=== PATIENT | female | born 1955 | race Two or more races ===

== ENCOUNTER 2018-12-08 10:30 | Emergency (ER) | payer OTHER ==
[~2018-12-08] VITALS: Ht 152.4 cm; Wt 72.8 kg
[~2018-12-08 10:30] MED LIST: [UNRECOGNIZED DRUG - REMARK]; [UNRECOGNIZED DRUG - REMARK]
[2018-12-08 10:33] VITALS: Ht 152.4 cm; Wt 72.8 kg
[2018-12-08] MEDS ORDERED: ONDANSETRON 4 MG INJ IV STA ×2 (10:44→17:06)
[2018-12-08] MEDS ORDERED: morphine 4 MG/ML VIAL IV STA (10:44)
[2018-12-08] MEDS ORDERED: SOD CHLORIDE 0.9% 1,000 ML IV STA (10:44)
[2018-12-08] MEDS ORDERED: GABA300C16 PO (11:30)
[2018-12-08] MEDS ORDERED: AMLO5TAB4 PO (11:30)
[2018-12-08] MEDS ORDERED: CARB1TAB34 ORAL (11:30)
[2018-12-08] MEDS ORDERED: SIMV20TA PO (11:30)
[2018-12-08] MEDS ORDERED: PANT40TA4 PO (11:30)
[2018-12-08] MEDS ORDERED: ONDA4TAB14 PO (14:17)
[2018-12-08] MEDS ORDERED: IBUP-1542 PO (14:17)
--- NOTE | 2018-12-08 14:20 | ERD ---
ER Documentation Chief Complaint Chief Complaint pt is bib family with c/o abd pain and vomiting starting last night, HPI Patient is a 63-year-old female with hypertension who presents with abdominal pain. The abdominal pain started last night. The patient has no fevers. The patient has nausea and vomiting but no diarrhea. The patient tried Mylanta. Upon review of old medical records this is the patient's third visit to the ER since 2008. The patient's primary doctor is Dr. Gómez Vital. ROS All systems reviewed and are negative except as per history of present illness. Medications Home Meds Active Scripts Ondansetron (Ondansetron Odt) 4 Mg Tab.rapdis, 4 MG PO Q6H PRN for NAUSEA AND/OR VOMITING, #10 TAB Prov:GABBIE ROYAL MD 12/08/18 Ibuprofen* (Motrin*) 600 Mg Tab, 600 MG PO Q6H PRN for PAIN AND OR ELEVATED TEMP, #30 TAB Prov:GABBIE ROYAL MD 12/08/18 Reported Medications Simvastatin* (Zocor*) 20 Mg Tablet, 20 MG PO QHS, #30 TAB 12/08/18 Gabapentin* (Gabapentin*) 300 Mg Capsule, 300 MG PO DAILY, #60 CAP 12/08/18 Amlodipine Besylate* (Norvasc*) 5 Mg Tablet, 5 MG PO DAILY, TAB 12/08/18 Carbidopa/Levodopa (Carbidopa-Levodopa 25-100 Tab) 1 Each Tablet, 1 TAB ORAL BID 12/08/18 Pantoprazole* (Pantoprazole*) 40 Mg Tablet.dr, 40 MG PO DAILY, TAB 12/08/18 Discontinued Reported Medications [[place], Unk Dose] No Conflict Check 03/17/14 [Htn Med, Name Unk] No Conflict Check 03/17/14 Allergies Allergies: Coded Allergies: No Known Allergy (Unverified , 12/08/18) PMhx/Soc History of Surgery: Yes () Anesthesia Reaction: No Hx Neurological Disorder: No Hx Respiratory Disorders: No Hx Cardiac Disorders: Yes (HTN, HIGH CHOLESTEROL) Hx Psychiatric Problems: No Hx Miscellaneous Medical Probl: No Hx Alcohol Use: No Hx Substance Use: No Hx Tobacco Use: No Smoking Status: Never smoker FmHx Family History: No diabetes Physical Exam Vitals Vital Signs Date Temp Pulse Resp B/P (MAP) Pulse Ox O2 O2 Flow FiO2 Time Delivery Rate 12/08/18 98.0 88 18 148/73 100 10:33 (98) Physical Exam Const: Moderate distress Head: Atraumatic Eyes: Normal Conjunctiva ENT: Normal External Ears, Nose and Mouth. Neck: Full range of motion. No meningismus. Resp: Clear to auscultation bilaterally Cardio: Regular rate and rhythm, no murmurs Abd: Soft, diffuse tenderness to palpation without rebound or guarding Skin: No petechiae or rashes Back: No midline or flank tenderness Ext: No cyanosis, or edema Neur: Awake and alert Psych: Normal Mood and Affect Result Diagram: 12/08/18 1057 12/08/18 1057 Results 24 hrs Laboratory Tests Test 12/08/18 10:43 12/08/18 10:57 12/08/18 12:30 Bedside Glucose 117 mg/dL White Blood Count 9.9 10^3/ul Red Blood Count 4.23 10^6/ul Hemoglobin 13.5 g/dl Hematocrit 38.0 % Mean Corpuscular Volume 89.8 fl Mean Corpuscular Hemoglobin 31.9 pg Mean Corpuscular 35.5 g/dl Hemoglobin Concent Red Cell Distribution Width 12.3 % Platelet Count 271 10^3/UL Mean Platelet Volume 9.8 fl Immature Granulocytes % 0.500 % Neutrophils % 75.7 % Lymphocytes % 17.3 % Monocytes % 4.0 % Eosinophils % 2.1 % Basophils % 0.4 % Nucleated Red Blood Cells % 0.0 /100WBC Immature Granulocytes # 0.050 10^3/ul Neutrophils # 7.5 10^3/ul Lymphocytes # 1.7 10^3/ul Monocytes # 0.4 10^3/ul Eosinophils # 0.2 10^3/ul Basophils # 0.0 10^3/ul Nucleated Red Blood Cells # 0.0 10^3/ul Sodium Level 143 mmol/L Potassium Level 4.0 mmol/L Chloride Level 107 mmol/L Carbon Dioxide Level 26 mmol/L Anion Gap 10 Blood Urea Nitrogen 16 mg/dl Creatinine 0.64 mg/dl Est Glomerular Filtrat > 60 mL/min Rate mL/min Glucose Level 113 mg/dl Calcium Level 10.1 mg/dl Total Bilirubin 0.7 mg/dl Direct Bilirubin 0.00 mg/dl Indirect Bilirubin 0.7 mg/dl Aspartate Amino 32 IU/L Transf (AST/SGOT) Alanine 24 IU/L Aminotransferase (ALT/SGPT) Alkaline Phosphatase 92 IU/L Troponin I < 0.012 ng/ml Total Protein 8.1 g/dl Albumin 4.6 g/dl Globulin 3.50 g/dl Albumin/Globulin Ratio 1.31 Lipase 153 U/L Urine Color STRAW Urine Clarity CLEAR Urine pH 8.0 Urine Specific [place] 1.004 Urine Ketones NEGATIVE mg/dL Urine Nitrite NEGATIVE mg/dL Urine Bilirubin NEGATIVE mg/dL Urine Urobilinogen NEGATIVE mg/dL Urine Leukocyte Esterase NEGATIVE [place]/ul Urine Hemoglobin NEGATIVE mg/dL Urine Glucose NEGATIVE mg/dL Urine Total Protein NEGATIVE mg/dl Current Medications Medications Dose Sig/Marissa Start Time Status Last (Trade) Ordered Route PRN Stop Time Admin Dose Reason Admin Sodium 1,000 ml @ Q1H STAT 12/08/18 DC 12/08/18 Chloride 1,000 mls/hr IV 10:44 11:07 12/08/18 11:43 Morphine 4 mg ONCE STAT 12/08/18 DC 12/08/18 Sulfate IV 10:44 11:05 (morphine) 12/08/18 10:45 Ondansetron 4 mg ONCE STAT 12/08/18 DC 12/08/18 HCl (Zofran IV 10:44 11:07 Inj) 12/08/18 10:45 Procedures/MDM CT abdomen pelvis read by radiology. Ultrasound of the gallbladder read by radiology. Ultrasound of the pelvis pending at this time. Patient is a 63-year-old female presents with abdominal pain and vomiting. The patient had a full workup. Laboratory studies and urinalysis were negative. CT scan showed a left-sided ovarian cystic mass and recommended ultrasound for further evaluation which has been ordered and is pending at this time. Ultrasound of the gallbladder shows no obvious signs of cholecystitis at this time. I doubt cholecystitis, pancreatitis, appendicitis, or bowel obstruction. If the ultrasound of the pelvis is negative for ovarian torsion I believe outpatient management would be appropriate. The patient will be given ibuprofen and Zofran for symptomatic relief. The patient will need to follow-up within 24 hours with the primary care doctor for reevaluation. The patient will be signed out to the oncoming physician for final disposition. Departure Diagnosis: Primary Impression: Abdominal pain Abdominal location: generalized Qualified Codes: R10.84 - Generalized abdominal pain Additional Impression: Vomiting Vomiting type: unspecified Vomiting Intractability: non-intractable Nausea presence: with nausea Qualified Codes: R11.2 - Nausea with vomiting, unspecified Condition: Fair Patient Instructions: Abdominal Pain, Vomiting (6Y-Adult) Referrals: Dr. Gómez Vital Additional Instructions: Visite a [facility] para un EXAMEN.Regrese a estas instalaciones si no se mejora jesus esperbamos o jesus le dijimos. GABBIE ROYAL MD Dec 08, 2018 14:20
--- NOTE | 2018-12-08 16:28 | EN ---
Date/Time of Note Date/Time of Note DATE: 12/08/18 TIME: 16:28 ER Progress Note Sign Out Note: Dr. Lewis relayed current data and ongoing care with me. Time: Time of this note Primary Provider: Joshua Diagnosis: Pending US Pending: Ultrasound ordered to evaluate for torsion in the setting of left ovarian cyst, right ovary was not visualized but site of cyst, showed normal flow, patient stable for discharge home, at discharge in no acute distress. CHRISTA CASEY MD Dec 08, 2018 16:28
[2018-12-08 17:42] VITALS: BP 123/71; PULSE 78; RESP 18
== END 2018-12-08 18:13 | disposition home or self-care (01) ==
LOC: E/R 10:30
DX: R10.84 Generalized abdominal pain (principal); I10 Essential (primary) hypertension
CPT/HCPCS: 74176; 76705; 76830; 76856; 80053; 81003; 82962; 83690; 84484; 85025; 93005; J2270; J2405; J7030; 36415; 96374; 96375; 96376